=== PATIENT | male | born 1980 | race Caucasian/White ===

== ENCOUNTER 2019-03-28 23:50 | Inpatient (IN) | payer OTHER ==
[~2019-03-28] VITALS: Ht 180.3 cm; Wt 93.0 kg
--- NOTE | 2019-03-28 21:05 | NUR ---
This RN was told by Nancy MADISON from [facility] during report on patient that Dr. Kitchen had already been consulted and aware of the patient.
[~2019-03-28 23:50] MED LIST: CIPR500T94 PO; HYDR-2761 PO
--- NOTE | 2019-03-28 23:50 | NUR ---
The patient, MARY JO FLETCHER, 38 y/o, M admitted by LEXI MITCHELL MD, was given written information regarding hospital policies, unit procedures and contact persons. Patient was a direct admit from [facility]. RN received report from Nancy MADISON at [place] at 2105, patient arrived to room 414 by EMS at 2350 via gurney with at bedside. RN performed a head to toe assessment at that time, VSS, afebrile, pain rated a 4/10. Bed is in lowest locked position and call light is within reach. Valuables were checked and left in the room with patient. RN will continue to monitor patient closely.
[2019-03-29] VITALS (7 sets, daily range): BP systolic 105–128; BP diastolic 60–79
[2019-03-29] MEDS ORDERED: MORPHINE SULFATE 4 MG/ML VIAL. IV PRN (01:00)
[2019-03-29] MEDS: IV NORMAL SALINE 1000ML BAG 1,000 ML IV SCH ×3 (01:01→20:58)
--- NOTE | 2019-03-29 08:32 | PDOC2 ---
CONSULT Date of Consult Date of Consult DATE: 03/29/19 TIME: 08:29 Reason for Consult Reason for Consult: Abdominal pain Referring Physician Referring Physician: Ariel Identification/Chief Complaint Chief Complaint Abdominal pain above the pubic symphysis Source Source: Patient History of Present Illness Reason for Visit: 38-year-old male who states that he started feeling abdominal pain 2 days ago that time he had a normal bowel movement denies any blood in his stool pain became progressively worse which is why he came to the emergency department. He states he's had 4 episodes in the past similar to this none of which she's been hospitalized for. Denies ever having had a colonoscopy. Some nausea but no vomiting. Past Medical History Cardiovascular: No pertinent hx Pulmonary: No pertinent hx GI: No pertinent hx Heme/Onc: No pertinent hx Hepatobiliary: No pertinent hx Psych: No pertinent hx Rheumatologic: No pertinent hx Infectious disease: No pertinent hx ENT: No pertinent hx Renal/: No pertinent hx, Chronic renal failure Endocrine: No pertinent hx Dermatology: No pertinent hx Past Surgical History Past Surgical History: No pertinent history Family History Family History: No Significant Social History No ALCOHOL: rare Drugs: None Lives: with Family Current Medications Current Medications Current Medications Morphine Sulfate (Morphine Sulfate) 4 mg PRN Q4HRS PRN IV SEVERE PAIN 7-10; Start 03/29/19 at 01:00 Sodium Chloride 1,000 ml @ 100 mls/hr Q10H IV Last administered on 03/29/19at 01:01; Start 03/29/19 at 01:00 Active Scripts Active Hydrocodone-Apap 5-325 (Hydrocodone Bit/Acetaminophen) 1 Each Tablet 1-2 Tab PO Q4-6HRS Cipro (Ciprofloxacin Hcl) 500 Mg Tablet 500 Mg PO BID Allergies Allergies: Coded Allergies: No Known Drug Allergies (Unverified , 01/24/15) ROS Gastrointestinal: Yes Nausea, Yes Abdominal Pain Physical Exam General: Alert, Oriented X3, Cooperative, mild distress HEENT: Atraumatic, PERRLA, EOMI Lungs: Clear to auscultation, Normal air movement Heart: Regular rate, No murmurs Abdomen: Normal bowel sounds, Soft, Other (tender to palpation low in the mid line just above the pubic symphysis no peritoneal signs abdomen is soft) Extremities: No edema Skin: No significant lesion Neuro: Normal speech Psych/Mental Status: Mental status NL Vitals VITALS Vital Signs Date Time Temp Pulse Resp B/P (MAP) Pulse Ox O2 Delivery O2 Flow Rate FiO2 03/29/19 07:00 98.6 73 18 107/64 (78) 99 Room Air 98.[address] scan from [place] was reviewed which showed sigmoid diverticulitis with small bubble of free air likely secondary for microperforation no fluid no abscess Assessment/Plan Assessment/Plan 38-year-old male with diverticulitis hemodynamically stable mildly elevated white count Agree with treatment with IV antibiotics IV hydration and bowel rest Would recommend GI consult in addition patient will need colonoscopy after acute episode is resolved FIDEL CUNNINGHAM MD Mar 29, 2019 08:32
[2019-03-29] MEDS ORDERED: ONDANSETRON PF 4 MG/2 ML VIAL. IV PRN (10:00)
[2019-03-29] MEDS ORDERED: PIPERACILLIN/TAZOBACTAM 4.5 GM in IV NORMAL SALINE 100ML 100 ML IV SCH (10:00)
--- NOTE | 2019-03-29 10:03 | HP ---
ADMIT DATE: 03/28/2019 HISTORY OF PRESENT ILLNESS: The patient is a 38-year-old male patient who presented to the Emergency Room of [facility] with abdominal pain, dysuria that started the day before admission, also had fever, temperature up to 107. He tried [id number] without improvement. The pain radiates to both flank areas. There is no blood in the urine. No increased frequency. He has had 3 previous episodes of diverticulitis and according to him, he was seen, the last time at [facility] at the time he was placed on antibiotic. He denied any urethral discharge or testicular pain. He was evaluated in the Emergency Room and had a CT scan of the abdomen and pelvis with IV contrast as well as lab work. His white cell count was high at 15,000. His chemistry was unremarkable. Urinalysis was also unremarkable. CT scan of the abdomen and pelvis showed that the patient has acute sigmoid diverticulitis. There are also a couple of small bubbles of gas along the inferior margin of the inflamed colon which represents early microperforation, but no evidence of an abscess; therefore, the patient was transferred to [facility] to continue with IV fluid and IV antibiotic and pain management. PAST MEDICAL HISTORY: Significant for diverticulitis. PAST SURGICAL HISTORY: Significant for vasectomy. ALLERGIES: He has no known drug allergies. MEDICATIONS: He is currently on no medication. FAMILY HISTORY: Unremarkable, has 1 older sister and both parents are healthy. SOCIAL HISTORY: He is , has 2 daughters and 1 son. He does smoke a little less than a pack, does not drink alcohol or use any recreational drugs. He is in the [employer]. PHYSICAL EXAMINATION: GENERAL: On examining him, on arrival to the [place], he looked well and was clearly in no apparent respiratory distress. No pallor, jaundice, cyanosis or thyromegaly. No jugular venous distention. No limb edema. VITAL SIGNS: His heart rate was 78, blood pressure 118/67, temperature was 99, respiratory rate was 18 and oxygen saturation was 98%. HEAD, EYES, EARS, NOSE AND THROAT: Showed normocephalic, atraumatic. NECK: Supple. HEART: Showed normal first and second heart sounds with no gallop, rub or murmur. CHEST: Clear to auscultation. No crepitation or rhonchi. ABDOMEN: Distended, soft with mild lower abdominal tenderness without any rebound. No guarding or rigidity. No organomegaly. All hernial orifices intact. Bowel sounds normal. NEUROLOGIC: He is awake, alert, responding appropriately. All cranial nerves intact. EXTREMITIES: He moves extremities without difficulty. He ambulates without assistance or assistive devices. LABORATORY DATA: Showed white cell count of 15,100, hemoglobin 16, hematocrit 46, MCV 90 and platelet count of 294,000 with normal manual differential. His chemistry showed a serum sodium 136, potassium 3.5, chloride 100, bicarbonate 28, anion gap of 8, BUN 7, creatinine 1.2, estimated GFR was 68 mL per minute. His glucose was 95, calcium was 9. Total bilirubin, AST, ALT, alkaline phosphatase were normal. Total protein was 7.7, albumin was 3.7. Serum lipase 146. His urinalysis showed the urine was yellow, clear with a pH of 7, specific gravity of 1.010. The urine was negative for protein, glucose, ketones, blood, nitrite, leukocyte esterase. There are no rbc's, no wbc's, and no bacteria. SUMMARY: This is a 38-year-old male patient who came with acute sigmoid diverticulitis with microperforation. We will continue with IV fluid, continue with antibiotic. We will consult the surgical team and decide on further management accordingly. LEXI MITCHELL MD DR: GRACE/yoly JOB#: [id number] / [id number]
[2019-03-29] MEDS: PIPERACILLIN/TAZOBACTAM 3.375 GM in IV NORMAL SALINE 50ML 50 ML IV SCH ×3 (10:14→23:49)
--- NOTE | 2019-03-29 12:26 | PDOC2 ---
GI CONSULT Reason For Consult: Diverticulitis HPI: HPI: 38 y/o male with recurrent attacks of supraumbilical pain. 3-4 prior to this one w/o firm diagnosis. Has responded to antibiotics in the past. This time seen at [facility] and had CT showing diverticulitis with probably "microperf". Otherwise w/o GI issues. Denies HB, dyaphagia, PUD, GB, liver or pancreatic history. Smokes. No alcohol. Occasional NSAID use. No D, C, overt bleeding. Wt/appetite OK. No N, V. No GIFH. No prior endoscopy. PMH: PMH: No PMH. Prior vasectomy constitutes only operation. FH: Family History: CAD (grandmother) Social History: Smoke: No ALCOHOL: rare Drugs: None ROS: GEN: Denies fevers, chills, sweats HEENT: Denies blurred vision, sore throat CV: Denies chest pain RESP: Denies shortness of air, cough GI: Per HPI : Denies hematuria, dysuria ENDO: Denies weight changes NEURO: Denies confusion, dizziness MSK: Denies weakness, joint pain/swelling SKIN: Denies jaundice, pruritus Vitals: Vitals: Vital Signs Date Time Temp Pulse Resp B/P (MAP) Pulse Ox O2 Delivery O2 Flow Rate FiO2 03/29/19 10:48 97.8 77 18 125/75 (92) 98 Room Air 97.8 Labs: Labs: Reviewed. Allergies: Coded Allergies: No Known Drug Allergies (Unverified , 01/24/15) Medications: Current Medications Medications (Trade) Dose Ordered Sig/Kina Route PRN Reason Start Time Stop Time Status Last Admin Dose Admin Sodium Chloride 1,000 ml @ 100 mls/hr Q10H IV 03/29/19 01:00 03/29/19 10:18 Piperacillin Sod/ Tazobactam Sod 3.375 gm/Sodium Chloride 50 ml @ 100 mls/hr Q6HRS IV 03/29/19 10:30 03/29/19 10:18 Imaging: Imaging: Reports from [facility] reviewed. PE: GEN: NAD HEENT: Atraumatic, PERRLA LUNGS: CTAB HEART: RRR, no murmurs ABD: NABS, S/ND, no masses, tender suprapubic toward left. EXTREMITY: No edema SKIN: No rashes, no jaundice NEURO/PSYCH: A & O �3 A/P: A/P: IMP: Diverticulitis; suspect cause of other "attacks". REC: Continue antibiotics. Could probably have clears. As improves, po antibiotics. Given higher risk of polyps, etc with diverticular disease, would merit colonoscopy once current issues resolve. Given recurrent issues, could certainly consider surgery for diverticular problems. Thank you for allowing me to assist in the care of this patient. Please call if questions. EVA RODRIGUEZ MD Mar 29, 2019 12:26
--- NOTE | 2019-03-29 22:31 | PN ---
DATE: 03/29/2019 SUBJECTIVE: The patient was seen yesterday at [facility] Emergency Room, was diagnosed with acute sigmoid diverticulitis with microperforation, who was admitted to [facility] to continue with IV antibiotic, pain management and to consult the surgical team. On questioning him this morning, he stated his pain is much less today. Denied any chills, rigors or fever. PHYSICAL EXAMINATION: GENERAL: When I examined him, he looked well and was clearly in no apparent respiratory distress. No pallor, jaundice, cyanosis or thyromegaly. No jugular venous distension. No lower limb edema. VITAL SIGNS: Her heart rate was 73, blood pressure 107/64, temperature was 98.6, respiratory rate was 18 and oxygen saturation was 99%. HEAD, EYES, EARS, NOSE AND THROAT: Showed normocephalic, atraumatic. NECK: Supple. HEART: Showed normal first and second heart sounds. No gallop or murmur. CHEST: Clear to auscultation. No crepitation, rhonchi. ABDOMEN: Soft, nontender. NEUROLOGIC: He was awake, alert, responding appropriately. All cranial nerves are intact. He moves extremities without difficulty. LABORATORY DATA: No lab works done yesterday, his white cell count was 15,000. ASSESSMENT: Acute sigmoid diverticulitis with microperforation. PLAN: To continue with IV Zosyn, IV fluid, pain management, antiemetic and bowel rest. We will consult the healthcare network pricing consultant as he may require eventually a colonoscopy. LEXI MITCHELL MD DR: GRACE/yoly JOB#: [id number] / [id number]
[2019-03-30 03:02] VITALS: BP 109/66
[2019-03-30 04:54] LABS: BASO # 0.1 x10^3/uL (0.0-0.2); BASO % 1 % (0-3); EOS # 0.5 x10^3/uL (0.0-0.7); EOS % 6 % (0-3); HEMATOCRIT 38.9 % (39.0-53.0); HEMOGLOBIN 13.7 g/dL (13.0-17.5); LYMPH # 2.3 x10^3/uL (1.0-4.8); LYMPH % 29 % (24-48); MEAN CORPUSCULAR HEMOGLOBIN 32 pg (25-35); MEAN CORPUSCULAR HGB CONC 35 g/dL (31-37); MEAN CORPUSCULAR VOLUME 89 fL (79-100); MONO # 0.5 x10^3/uL (0.0-1.1); MONO % 6 % (0-9); NEUT # 4.8 x10^3/uL (1.8-7.7); NEUT % 59 % (31-73); PLATELET COUNT 238 x10^3/uL (140-400); RED BLOOD COUNT 4.37 x10^6/uL (4.30-5.70); RED CELL DISTRIBUTION WIDTH 12.8 % (11.5-14.5)
[2019-03-30 05:19] LABS: ALBUMIN 2.9 g/dL (3.4-5.0); ALBUMIN/GLOBULIN RATIO 0.8 (1.0-1.7); CALCIUM 8.7 mg/dL (8.5-10.1); CREATININE 1.1 mg/dL (0.7-1.3); GFR 74.9; TOTAL BILIRUBIN 1.2 mg/dL (0.2-1.0); TOTAL PROTEIN 6.6 g/dL (6.4-8.2)
[2019-03-30] MEDS: IV NORMAL SALINE 1000ML BAG 1,000 ML IV SCH ×2 (05:31→17:00)
[2019-03-30] MEDS: PIPERACILLIN/TAZOBACTAM 3.375 GM in IV NORMAL SALINE 50ML 50 ML IV SCH ×3 (05:31→17:55)
[2019-03-30 07:00] VITALS: BP 106/59
--- NOTE | 2019-03-30 09:35 | PDOC ---
COLETTE NATH CHAIRMAN & CEO 03/30/19 0935: SURGICAL PROGRESS NOTE Subjective pain is in low back no abdominal pain no n/v tolerating clears Vital Signs Vital Signs Date Time Temp Pulse Resp B/P (MAP) Pulse Ox O2 Delivery O2 Flow Rate FiO2 03/30/19 07:30 Room Air 03/30/19 07:00 98.2 62 16 106/59 (75) 99 98.2 I&O Intake and Output 03/30/19 06:59 # Voids 3 General: Alert, Oriented X3, Cooperative, No acute distress Abdomen: Soft, No tenderness Labs Laboratory Tests Test 03/30/19 04:10 White Blood Count 8.0 x10^3/uL (4.0-11.0) Red Blood Count 4.37 x10^6/uL (4.30-5.70) Hemoglobin 13.7 g/dL (13.0-17.5) Hematocrit 38.9 % (39.0-53.0) Mean Corpuscular Volume 89 fL (79-100) Mean Corpuscular Hemoglobin 32 pg (25-35) Mean Corpuscular Hemoglobin Concent 35 g/dL (31-37) Red Cell Distribution Width 12.8 % (11.5-14.5) Platelet Count 238 x10^3/uL (140-400) Neutrophils (%) (Auto) 59 % (31-73) Lymphocytes (%) (Auto) 29 % (24-48) Monocytes (%) (Auto) 6 % (0-9) Eosinophils (%) (Auto) 6 % (0-3) Basophils (%) (Auto) 1 % (0-3) Neutrophils # (Auto) 4.8 x10^3/uL (1.8-7.7) Lymphocytes # (Auto) 2.3 x10^3/uL (1.0-4.8) Monocytes # (Auto) 0.5 x10^3/uL (0.0-1.1) Eosinophils # (Auto) 0.5 x10^3/uL (0.0-0.7) Basophils # (Auto) 0.1 x10^3/uL (0.0-0.2) Sodium Level 144 mmol/L (136-145) Potassium Level 4.0 mmol/L (3.5-5.1) Chloride Level 109 mmol/L (98-107) Carbon Dioxide Level 27 mmol/L (21-32) Anion Gap 8 (6-14) Blood Urea Nitrogen 10 mg/dL (8-26) Creatinine 1.1 mg/dL (0.7-1.3) Estimated GFR (Cockcroft-Gault) 74.9 BUN/Creatinine Ratio 9 (6-20) Glucose Level 75 mg/dL (70-99) Calcium Level 8.7 mg/dL (8.5-10.1) Total Bilirubin 1.2 mg/dL (0.2-1.0) Aspartate Amino Transf (AST/SGOT) 12 U/L (15-37) Alanine Aminotransferase (ALT/SGPT) 14 U/L (16-63) Alkaline Phosphatase 61 U/L (46-116) Total Protein 6.6 g/dL (6.4-8.2) Albumin 2.9 g/dL (3.4-5.0) Albumin/Globulin Ratio 0.8 (1.0-1.7) Laboratory Tests Test 03/30/19 04:10 White Blood Count 8.0 x10^3/uL (4.0-11.0) Red Blood Count 4.37 x10^6/uL (4.30-5.70) Hemoglobin 13.7 g/dL (13.0-17.5) Hematocrit 38.9 % (39.0-53.0) Mean Corpuscular Volume 89 fL (79-100) Mean Corpuscular Hemoglobin 32 pg (25-35) Mean Corpuscular Hemoglobin Concent 35 g/dL (31-37) Red Cell Distribution Width 12.8 % (11.5-14.5) Platelet Count 238 x10^3/uL (140-400) Neutrophils (%) (Auto) 59 % (31-73) Lymphocytes (%) (Auto) 29 % (24-48) Monocytes (%) (Auto) 6 % (0-9) Eosinophils (%) (Auto) 6 % (0-3) Basophils (%) (Auto) 1 % (0-3) Neutrophils # (Auto) 4.8 x10^3/uL (1.8-7.7) Lymphocytes # (Auto) 2.3 x10^3/uL (1.0-4.8) Monocytes # (Auto) 0.5 x10^3/uL (0.0-1.1) Eosinophils # (Auto) 0.5 x10^3/uL (0.0-0.7) Basophils # (Auto) 0.1 x10^3/uL (0.0-0.2) Sodium Level 144 mmol/L (136-145) Potassium Level 4.0 mmol/L (3.5-5.1) Chloride Level 109 mmol/L (98-107) Carbon Dioxide Level 27 mmol/L (21-32) Anion Gap 8 (6-14) Blood Urea Nitrogen 10 mg/dL (8-26) Creatinine 1.1 mg/dL (0.7-1.3) Estimated GFR (Cockcroft-Gault) 74.9 BUN/Creatinine Ratio 9 (6-20) Glucose Level 75 mg/dL (70-99) Calcium Level 8.7 mg/dL (8.5-10.1) Total Bilirubin 1.2 mg/dL (0.2-1.0) Aspartate Amino Transf (AST/SGOT) 12 U/L (15-37) Alanine Aminotransferase (ALT/SGPT) 14 U/L (16-63) Alkaline Phosphatase 61 U/L (46-116) Total Protein 6.6 g/dL (6.4-8.2) Albumin 2.9 g/dL (3.4-5.0) Albumin/Globulin Ratio 0.8 (1.0-1.7) Problem List Problems Medical Problems: (1) Perforation of sigmoid colon due to diverticulitis Status: Acute Assessment/Plan ok from surgical pov to advance diet and work toward oral abx, dc, gi fu FIDEL CUNNINGHAM MD 03/30/19 1030: SURGICAL PROGRESS NOTE Assessment/Plan Patient seen and examined, little to no abdominal pain. Abd soft, NT Agree with Dick's assessment and plan COLETTE NATH APRN Mar 30, 2019 09:35 FIDEL CUNNINGHAM MD Mar 30, 2019 10:30
--- NOTE | 2019-03-30 09:42 | PN ---
DATE: 03/30/2019 SUBJECTIVE: The patient is resting flat, comfortably, in no apparent distress. On questioning him, he denied any abdominal pain. Denied any nausea or vomiting. He is only hungry. Apparently, he was seen by Dr. Kitchen and he is apparently started on a clear liquid. PHYSICAL EXAMINATION: GENERAL: When I examined him, he looked pale. No jaundice, cyanosis or thyromegaly. No jugular venous distention. No limb edema. VITAL SIGNS: His heart rate was 62, blood pressure was 106/59, temperature was 98.2, respiratory rate was 16, and oxygen saturation was 99%. HEAD, EYES, EARS, NOSE AND THROAT: Showed normocephalic, atraumatic. NECK: Supple. HEART: Showed normal first and second heart sounds with no gallop or murmur. CHEST: Clear to auscultation. No crepitation or rhonchi. ABDOMEN: Scaphoid, soft, nontender. NEUROLOGIC: He was awake, alert, responding appropriately. All cranial nerves intact. He moves extremities without difficulty. His intake and output are incompletely recorded. LABORATORY DATA: His lab work this morning showed a serum sodium 144, potassium 4, chloride 109, bicarbonate 27, anion gap of 8, BUN 10, creatinine 1.1, estimated GFR was 74 mL per minute, his glucose 75, calcium was 8.7. Total bilirubin, AST, ALT, alkaline phosphatase were normal. Total protein was 6.6, albumin 2.9. His white cell count was 8000, hemoglobin 14, hematocrit 39, MCV 89 and platelet count 238,000. ASSESSMENT: Acute sigmoid diverticulitis with microperforation. PLAN: To continue with IV Zosyn, continue with IV fluid, continue with pain management. Start clear liquid diet. LEXI MITCHELL MD DR: GRACE/yoly JOB#: [id number] / [id number]
--- NOTE | 2019-03-30 09:58 | PDOC ---
Subjective: Subjective: Feels better - no abd pain, has stooled. Would like to discharge soon. Objective: Objective: Per nurse - trying clears, denies pain, wants to leave. Vital Signs: Vital Signs Date Time Temp Pulse Resp B/P (MAP) Pulse Ox O2 Delivery O2 Flow Rate FiO2 03/30/19 07:30 Room Air 03/30/19 07:00 98.2 62 16 106/59 (75) 99 98.2 Labs: Laboratory Tests Test 03/30/19 04:10 White Blood Count 8.0 x10^3/uL Red Blood Count 4.37 x10^6/uL Hemoglobin 13.7 g/dL Hematocrit 38.9 % Mean Corpuscular Volume 89 fL Mean Corpuscular Hemoglobin 32 pg Mean Corpuscular Hemoglobin Concent 35 g/dL Red Cell Distribution Width 12.8 % Platelet Count 238 x10^3/uL Neutrophils (%) (Auto) 59 % Lymphocytes (%) (Auto) 29 % Monocytes (%) (Auto) 6 % Eosinophils (%) (Auto) 6 % Basophils (%) (Auto) 1 % Neutrophils # (Auto) 4.8 x10^3/uL Lymphocytes # (Auto) 2.3 x10^3/uL Monocytes # (Auto) 0.5 x10^3/uL Eosinophils # (Auto) 0.5 x10^3/uL Basophils # (Auto) 0.1 x10^3/uL Sodium Level 144 mmol/L Potassium Level 4.0 mmol/L Chloride Level 109 mmol/L Carbon Dioxide Level 27 mmol/L Anion Gap 8 Blood Urea Nitrogen 10 mg/dL Creatinine 1.1 mg/dL Estimated GFR (Cockcroft-Gault) 74.9 BUN/Creatinine Ratio 9 Glucose Level 75 mg/dL Calcium Level 8.7 mg/dL Total Bilirubin 1.2 mg/dL Aspartate Amino Transf (AST/SGOT) 12 U/L Alanine Aminotransferase (ALT/SGPT) 14 U/L Alkaline Phosphatase 61 U/L Total Protein 6.6 g/dL Albumin 2.9 g/dL Albumin/Globulin Ratio 0.8 PE: GEN: NAD - walking around room LUNGS: room air HEART: RRR ABD: soft, non-tender NEURO/PSYCH: A & O �3 A/P: Diverticulitis - suspect recurrent -- Improved, tolerating clears. Could advance diet some ?and consider DC on PO atbx. Outpt colonoscopy in 6-8 weeks - our office will call to arrange. MARQUIS WEINER Mar 30, 2019 09:57
[2019-03-30 11:00] VITALS: BP 121/82
--- NOTE | 2019-03-30 13:00 | NUR ---
SS following for discharge planning. SS reviewed pt chart. Pt is from home with spouse and is currently on room air. No discharge needs noted at this time. SS will continue to follow for discharge planning.
[2019-03-30 15:00] VITALS: BP 111/66
[2019-03-30 19:00] VITALS: BP 112/68
[2019-03-30] MEDS: CIPROFLOXACIN HCL 250 MG TABLET. PO SCH (20:57)
[2019-03-30] MEDS: metroNIDAZOLE 500 MG TABLET PO SCH (21:56)
[2019-03-30 22:45] VITALS: BP 109/59
[2019-03-31] MEDS: IV NORMAL SALINE 1000ML BAG 1,000 ML IV SCH (03:00)
[2019-03-31] MEDS: metroNIDAZOLE 500 MG TABLET PO SCH (06:07)
[2019-03-31 07:15] VITALS: BP 114/69
--- NOTE | 2019-03-31 09:00 | PDOC ---
SURGICAL PROGRESS NOTE Subjective tolerating diet no n/v no pain Vital Signs Vital Signs Date Time Temp Pulse Resp B/P (MAP) Pulse Ox O2 Delivery O2 Flow Rate FiO2 03/31/19 07:15 97.8 59 18 114/69 (84) 99 Room Air 97.8 I&O Intake and Output 03/31/19 06:59 Intake Total 970 ml Balance 970 ml Intake Oral 920 ml IV Total 50 ml # Voids 5 # Bowel Movements 1 General: Alert, Oriented X3, Cooperative, No acute distress Abdomen: Soft, No tenderness Labs Laboratory Tests Test 03/30/19 04:10 White Blood Count 8.0 x10^3/uL (4.0-11.0) Red Blood Count 4.37 x10^6/uL (4.30-5.70) Hemoglobin 13.7 g/dL (13.0-17.5) Hematocrit 38.9 % (39.0-53.0) Mean Corpuscular Volume 89 fL (79-100) Mean Corpuscular Hemoglobin 32 pg (25-35) Mean Corpuscular Hemoglobin Concent 35 g/dL (31-37) Red Cell Distribution Width 12.8 % (11.5-14.5) Platelet Count 238 x10^3/uL (140-400) Neutrophils (%) (Auto) 59 % (31-73) Lymphocytes (%) (Auto) 29 % (24-48) Monocytes (%) (Auto) 6 % (0-9) Eosinophils (%) (Auto) 6 % (0-3) Basophils (%) (Auto) 1 % (0-3) Neutrophils # (Auto) 4.8 x10^3/uL (1.8-7.7) Lymphocytes # (Auto) 2.3 x10^3/uL (1.0-4.8) Monocytes # (Auto) 0.5 x10^3/uL (0.0-1.1) Eosinophils # (Auto) 0.5 x10^3/uL (0.0-0.7) Basophils # (Auto) 0.1 x10^3/uL (0.0-0.2) Sodium Level 144 mmol/L (136-145) Potassium Level 4.0 mmol/L (3.5-5.1) Chloride Level 109 mmol/L (98-107) Carbon Dioxide Level 27 mmol/L (21-32) Anion Gap 8 (6-14) Blood Urea Nitrogen 10 mg/dL (8-26) Creatinine 1.1 mg/dL (0.7-1.3) Estimated GFR (Cockcroft-Gault) 74.9 BUN/Creatinine Ratio 9 (6-20) Glucose Level 75 mg/dL (70-99) Calcium Level 8.7 mg/dL (8.5-10.1) Total Bilirubin 1.2 mg/dL (0.2-1.0) Aspartate Amino Transf (AST/SGOT) 12 U/L (15-37) Alanine Aminotransferase (ALT/SGPT) 14 U/L (16-63) Alkaline Phosphatase 61 U/L (46-116) Total Protein 6.6 g/dL (6.4-8.2) Albumin 2.9 g/dL (3.4-5.0) Albumin/Globulin Ratio 0.8 (1.0-1.7) Problem List Problems Medical Problems: (1) Perforation of sigmoid colon due to diverticulitis Status: Acute Assessment/Plan stable for dc from surgical pov abx, gi FU COLETTE NATH CONTROL SYSTEMS ENGINEER Mar 31, 2019 09:00
[2019-03-31] MEDS: CIPROFLOXACIN HCL 250 MG TABLET. PO SCH (09:12)
--- NOTE | 2019-03-31 09:20 | PDOC ---
Subjective: Subjective: Not a breakfast person, but ate veggies, chicken, and mashed potatoes last night. No abd pain, would like to discharge. Objective: Vital Signs: Vital Signs Date Time Temp Pulse Resp B/P (MAP) Pulse Ox O2 Delivery O2 Flow Rate FiO2 03/31/19 08:00 Room Air 03/31/19 07:15 97.8 59 18 114/69 (84) 99 97.8 PE: GEN: NAD LUNGS: CTAB HEART: RRR ABD: NABS, S/ND/NT NEURO/PSYCH: A & O �3 A/P: Diverticulitis -- Improved. DC per primary on PO atbx, follow-up for colonoscopy w/ Dr. Rojas. MARQUIS WEINER Mar 31, 2019 09:20
[2019-03-31] MEDS ORDERED: METR-34 PO (09:44)
--- NOTE | 2019-03-31 09:52 | DS ---
DATE OF DISCHARGE: 03/31/2019 HOSPITAL COURSE: The patient is resting, slightly propped up in bed, in no apparent distress. On questioning him, he denied any abdominal pain. Denied any nausea or vomiting. His diet was advanced to regular diet. He is eating and drinking without difficulty. He was evaluated by the surgical team as well as the wardrobe supervisor and as he remained stable, afebrile, tolerating his diet, a decision was made to discharge him home to continue on oral antibiotic. PHYSICAL EXAMINATION: GENERAL: When I examined him this morning, he looked well and was clearly in no apparent respiratory distress. No pallor, jaundice, cyanosis, or thyromegaly. No jugular venous distension. No lower limb edema. VITAL SIGNS: His heart rate was 59, blood pressure was 114/69, temperature was 97.8, respiratory rate was 18, and oxygen saturation was 99%. HEAD, EYES, EARS, NOSE, AND THROAT: Showed normocephalic, atraumatic. NECK: Supple. HEART: Showed normal first and second heart sounds. No gallop or murmur. CHEST: Clear to auscultation. No crepitation or rhonchi. ABDOMEN: Scaphoid, soft, nontender. No guarding or rigidity. No organomegaly. All hernial orifice intact. Bowel sounds normal. NEUROLOGIC: He is awake, alert, responding appropriately. All cranial nerves intact. EXTREMITIES: He moves extremities without difficulty, ambulates without assistance or assistive devices. LABORATORY DATA: Showed a white cell count of 8000, hemoglobin 13.7, hematocrit 39, MCV 89, and platelet count of 238,000. Serum sodium 144, potassium 4, chloride 109, bicarbonate 27, anion gap of 8. BUN 10, creatinine 1.1, estimated GFR was 75 mL per minute. His glucose was 75. Calcium was 8.7. Total bilirubin slightly elevated. AST, ALT, alkaline phosphatase were normal. Total protein is 6.6. Albumin 2.9. DISCHARGE MEDICATIONS: He will be discharged home to continue on ciprofloxacin 500 mg twice a day and Flagyl 500 mg 2 times a day for 8 more days. FINAL DISCHARGE DIAGNOSIS: Acute sigmoid diverticulitis with microperforation, resolving. The patient will follow with Gastroenterology team for colonoscopy. LEXI MITCHELL MD DR: GRACE/yoly JOB#: [id number] / [id number]
--- NOTE | 2019-03-31 10:15 | NUR ---
Discharge orders placed. Discharge instructions/medications discussed with pt/pt . Rx Cipro 500mg 1 BID #16 and Flagyl 500mg 1 TID #24 given to pt. Discussed/wrote down due times for medications. Pt verbalized understanding. Explained to pt increased pain/fever to go to nearest ED. Pt voiced understanding. Explained pt will need to f/u with Dr. Rojas for colonoscopy. Pt explained Neida with Dr. Rojas explained their office will reach out to pt. Voiced understanding. Dr. Rojas number given to pt. IV removed without complications. Walked pt out to private vehicle accompanied by pt family without complications. Pt secured in vehicle.
== END 2019-03-31 10:15 | disposition home or self-care (01) | DRG 392 ==
LOC: 4 NORTH 23:50
PROVIDERS: ADMIT Internal Medicine; ATTEND Internal Medicine
DX: K57.20 Diverticulitis of large intestine with perforation and abscess without bleeding (principal); F17.210 Nicotine dependence, cigarettes, uncomplicated; Z98.52 Vasectomy status; Z82.49 Family history of ischemic heart disease and other diseases of the circulatory system
CPT/HCPCS: 36415; 80053; 85025; J2543; J7030; G0378

== ENCOUNTER → 2019-08-17 | Day surgery (SDC) | payer OTHER ==
[~2019-08-17] MED LIST changes: +IV RINGERS,LACTATED 1000ML 1,000 ML IV ONE; +LIDOCAINE 2% PF 5 ML VIAL. ONE; +METR-34 PO; +PROPOFOL 40 ML IV ONE
--- NOTE | 2019-08-17 13:15 | PDOC1 ---
History and Physical Date of Admission Date of Admission DATE: 08/17/19 TIME: 13:10 Source Source: Chart review, Patient History of Present Illness History of Present Illness 38 y/o male with recurrent diverticulitis. Last in March 2019. Colonoscopy recommended and presents for same. Currently w/o complaints. No other GI complaints or history. Past Medical History Cardiovascular: No pertinent hx Pulmonary: No pertinent hx GI: No pertinent hx Heme/Onc: No pertinent hx Hepatobiliary: No pertinent hx Psych: No pertinent hx Rheumatologic: No pertinent hx Infectious disease: No pertinent hx Renal/: No pertinent hx, Chronic renal failure Endocrine: No pertinent hx Dermatology: No pertinent hx Past Surgical History Past Surgical History: Other (vasectomy) Family History Family History: Coronary Artery Disease (grandmother) Social History Smoke: No ALCOHOL: rare Drugs: None Current Medications Current Medications Current Medications Ringer's Solution 1,000 ml @ 75 mls/hr 1X ONCE IV ; Start 08/17/19 at 13:15; Stop 08/18/19 at 02:34 Active Scripts Active Allergies Allergies: Coded Allergies: No Known Drug Allergies (Unverified , 01/24/15) ROS Review of System Otherwise negative. Physical Exam General: Alert, Oriented X3, Cooperative, No acute distress Lungs: Clear to auscultation Heart: S1S2, no gallops, no murmurs Abdomen: Normal bowel sounds, Soft, No tenderness, No hepatosplenomegaly, No masses Rectal Exam: deferred (to time of procedure) Extremities: No cyanosis, No edema Skin: No significant lesion Neuro: Normal speech, Strength at 5/5 X4 ext, Normal tone, Sensation intact, Cranial nerves 3-12 NL, Reflexes 2+ Psych/Mental Status: Mental status NL, Mood NL Vitals Vitals See nursing record. VTE Prophylaxis Ordered VTE Prophylaxis Devices: No VTE Pharmacological Prophylaxi: No Assessment/Plan Assessment/Plan IMP: Diverticulosis with h/o diverticulitis. PLAN: Colonoscopy EVA RODRIGUEZ MD Aug 17, 2019 13:15
--- NOTE | 2019-08-17 14:20 | PDOC4 ---
PROCEDURE Procedure Colonoscopy with biopseis Indication: diverticulosis Meds: per anesthesa Findings: CHANDRA: Normal --'Scope advanced t cecum. Prep good. Mucosa normal. multiple diverticula, sigmoid. 4-5mm polyp, sigmoid, biopsied off. Exam otherwise normal including retroflex. Tomeka. well. IMP: small polyp Diverticulosis REC: f/u path. See me in 2 weeks. Continue current meds, diet. EVA RODRIGUEZ MD Aug 17, 2019 14:20
[2019-08-17 14:38] VITALS: BP 116/69
--- NOTE | 2019-08-19 18:52 | PATHOLOGY ---
[facility] Accession Number: [id number] . 01 Material submitted: . colon - SIGMOID POLYP BIOPSY. Modifiers: sigmoid . 01 Clinical history: . F/U diverticulosis. . 02 Diagnosis: Colon biopsy, sigmoid colon polyp: - Tubular adenoma. ([facility] 08/19/2019) [facility] 08/19/2019 1026 Local . 02 Comment: There is no high-grade dysplasia or evidence of malignancy. ([facility] 08/19/2019) . 02 Electronically signed: . Glenn Alvarez MD, Pathologist NPI- [id number] . 01 Gross description: . Received in formalin labeled "Leo Khan, sigmoid BX" is a 0.4 x 0.4 x 0.1 cm fragment of tapia-brown soft tissue. The specimen is submitted entirely in A1. ([facility]; 08/18/2019) [facility] 08/18/2019 1716 Local . 02 Pathologist provided ICD-10: D12.5 . 02 CPT . 323136 Specimen Comment: A courtesy copy of this report has been sent to [phone] Specimen Comment: Report sent to Specimen Comment: A duplicate report has been generated due to demographic updates. Performed at: 01 [facility] [address], [place], [place] [id number] MD Kit Ureña MD Phone: [phone] Performed at: 02 [facility] [address], [place] [id number] MD Glenn Alvarez MD Phone: [phone]
== END | disposition home or self-care (01) ==
LOC: SURG 12:43
PROVIDERS: ATTEND Internal Medicine Gastroenterology
DX: K59.00 Constipation, unspecified (principal); D12.5 Benign neoplasm of sigmoid colon; K57.30 Diverticulosis of large intestine without perforation or abscess without bleeding; Z72.89 Other problems related to lifestyle
CPT/HCPCS: 45380; 88305; J2001; J2704

== ENCOUNTER → 2020-10-18 | Outpatient (CLI) | payer OTHER ==
[2019-08-17 14:38] VITALS: BP 116/69
[~2020-10-18] MED LIST changes: +CYAN250T3 PO; +FOLI0.4T5 PO; -IV RINGERS,LACTATED 1000ML 1,000 ML IV ONE; +LEVO88TA70 PO; -LIDOCAINE 2% PF 5 ML VIAL. ONE; -PROPOFOL 40 ML IV ONE; +Vitamin D
--- NOTE | 2020-10-18 11:01 | PDOC1 ---
INITIAL PAIN CONSULT DATE OF SERVICE: DOS: DATE: 10/18/20 TIME: 10:55 CHIEF COMPLAINT: Chief Complaint: Low back bilateral lower extremity pain HISTORY OF PRESENT ILLNESS: 40-year-old male presents history of pain in the low back bilateral lower extremities also in the mid upper back for many years worse over the past year or so but going on for about 20 years patient was active is recently retired from that and has pain in the low back bilateral lower extremities posterior gluteus posterior thighs posterior calves anterior thighs anteromedial thighs medial lower legs as well as the feet bilaterally. 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 Patient has had physical therapy in the past as well as chiropractic treatment and exercises currently doing as well all with good decrease in pain but only temporary patient is tried Motrin Advil Flexeril Demerol Percocet and tramadol all of which help to some extent but only limited as well. Patient does yoga also which he feels is helpful and is currently doing that also patient did have an MRI scan of the lumbar spine dated September 15, 2020 showing minimal degenerative changes ill 3 4 with minimal disc bulge L4-5 with minimal disc bulge at L5-S1 with minimal disc bulge without foraminal compromise at any of these levels. Patient scribes pain is back as shooting sharp constant aching radiating into the lower extremities bilaterally right essentially equal to left but slightly more on the right with ambulation patient reports the pain in the back is aching and dull cramping at times intermittent intensity but always present. Patient rates his disability rating 0-10 10 being the worst is a 4 with family home with possibilities recreation as well as behavior 5 with social activity occupational activities to with self-care life support activities. PAST MEDICAL HISTORY: PMH: Diverticulitis, arthritis, history of cigarette smoking, hypothyroidism PREVIOUS SURGERIES: Past Surgical Hx: Vasectomy CURRENT MEDICATIONS: Current Meds: Active Scripts Medications Dose Route/Sig Max Daily Dose Days Date Category Synthroid (Levothyroxine Sodium) 88 Mcg Tablet 88 Mcg PO DAILYAC 10/18/20 Reported [Vitamin D] Unknown Dose WEEKLY 10/18/20 Reported Folic Acid 0.4 Mg Tablet Unknown Dose PO DAILY 10/18/20 Reported Vitamin B-12 (Cyanocobalamin (Vitamin B-12)) 250 Mcg Tablet Unknown Dose PO DAILY 10/18/20 Reported ALLERGIES; Allergies: Coded Allergies: No Known Drug Allergies (Unverified , 01/24/15) FAMILY HISTORY: Family Hx: Cancers SOCIAL HISTORY: Social Hx: Patient is nondrug alcohol recently quit smoking without use any illegal illicit recreational drugs is single has 2 children living at home lives locally in [facility] and is recently retired from [employer] duty. REVIEW OF SYSTEMS: ROS: Positive for those items mentioned in history of present illness, all systems are reviewed, otherwise negative ,and are complete full and well-documented on patient's chart. PHYSICAL EXAM: VS: Blood pressure is 140/88 pulse 69 respiration 16 temperature 98.5 F height is 71 inches weight is 212 pounds PE: PHYSICAL EXAMINATION: GENERAL: The patient is awake, alert, oriented, appropriate, very pleasant demeanor HEENT: Shows normocephalic, atraumatic. Extraocular movements are intact and symmetrical. Oral cavity: Mucous membranes moist and pink. Dentition is intact. NECK: Shows anterior throat supple without palpable lymphadenopathy noted. Swallow reflex symmetrical. CHEST: Shows normal on inspection. Breath sounds are clear bilaterally, no rales rhonchi wheezes auscultated. HEART: Shows S1, S2 clear. No murmurs auscultated. ABDOMEN: Soft, nontender, nondistended. No palpable organomegaly is noted. No rebound or guarding demonstrated. BACK: Shows spine grossly in the midline. Normal-appearing cervical lordotic curvature. There is slightly increased thoracic kyphosis, some minor flattening of the lumbar lordotic curvature. Lumbar paraspinous muscles show symmetrical on inspection, on palpation shows some moderate tenderness diffusely throughout the upper, middle and lower distribution of the paraspinous muscles bilaterally and also into the lower thoracic paraspinous musculature, firm and tender, but without specific trigger points, without radiation of pain. The patient has good rotational motion of the lumbar spine, both laterally as well as extension and flexion without significant difficulty. No tenderness over the spinous processes, sacrum or sacroiliac regions. EXTREMITIES: Lower extremities show deep tendon reflexes 2+ in the patellar and tendo calcaneus tendons. Motor exam is 5 on a scale of 5 with right dorsiflexion, extension, quadriceps and hamstring flexion and 5/5 on the left. Peripheral pulses are 1+ posterior tibial. No peripheral edema is noted bilaterally. Lower extremities are warm and dry to touch, equal in color and appearance. Straight leg raise noted to be positive on the right about 40 degrees, left side is negative. Gaenslen's and Edmundo's maneuvers are negative bilaterally. The patient is able to stand, stand on his toes without significant difficulty or loss of balance walks with a normal-appearing gait for a short distance in the office not use any assistive devices to ambulate such as canes or walkers. SKIN: Shows warm and dry, good turgor. No edema. No sores, rashes or bruising throughout. IMPRESSION: Impression: 40-year-old male with long history low back bilateral lower extremity pain in a radicular fashion MRI scan lumbar spine as noted Arthritis Diverticulitis Plan: Options were discussed with the patient including serve medical management physical therapies and interventional techniques. Patient would like to pursue interventional techniques. We discussed a lumbar epidural steroid injection using description as well as anatomical models described procedure. Patient will wait for preauthorization with insurance provider, with this is obtained we will proceed with L4-5 lumbar translaminar approach epidural steroid injection. In the meantime patient will continue with stretching strength exercises and yoga. Also give patient Medrol Dosepak with instructions side effects aware with the medication. Patient will follow up as scheduled. MARK NOLEN MD Oct 18, 2020 11:01
== END | disposition home or self-care (01) ==
LOC: PNCL 09:13
PROVIDERS: ATTEND Anesthesiology
DX: M54.5 Low back pain (principal); M79.605 Pain in left leg; M79.604 Pain in right leg; M19.90 Unspecified osteoarthritis, unspecified site; E03.9 Hypothyroidism, unspecified; F17.210 Nicotine dependence, cigarettes, uncomplicated; Z79.899 Other long term (current) drug therapy; Z98.890 Other specified postprocedural states
CPT/HCPCS: G0463

== ENCOUNTER → 2020-11-01 | Outpatient (CLI) | payer OTHER ==
[2019-08-17 14:38] VITALS: BP 116/69
[~2020-11-01] MED LIST changes: +IOHEXOL 180 MG/ML 10 ML VIAL. ONE; +methylPREDNISolone ACETATE 40 MG/ML VIAL. ONE; +methylPREDNISolone ACETATE 80 MG/ML VIAL. ONE
--- NOTE | 2020-11-01 09:42 | PDOC4 ---
PROCEDURE Procedure Patient was consented for lumbar epidural steroid injection. Risks were dis cussed including but not limited to: Bleeding, infection, possibility of epidural hematoma and subsequent neurological compromise, dural puncture, headaches, spinal cord and/or nerve damage, side effects of steroid medication, and poor results regarding pain control. Patient understands and wished to proceed. Procedure is lumbar epidural steroid injection under local anesthetic using sterile prep and drape at the L4-5 level using C-arm fluoroscopic guidance in both AP and lateral views medications injected is 120 mg Depo-Medrol + 10 mL preservative-free normal saline and 2 mL contrast- condition at discharge is stable patient tolerated procedure well had no complications. MARK NOLEN MD Nov 01, 2020 09:42
--- NOTE | 2020-11-01 09:42 | PDOC ---
Progress Note - Pain Clinic Date of Service: DOS: DATE: 11/01/20 TIME: 09:39 Diagnosis: Dx: Lumbar radiculopathy with lumbar degenerative disc disease History or Present Illness: HPI: 40-year-old male returns follow-up status post initial evaluation preauthorization for lumbar epidural steroid injection. Patient reports still significant pain the low back right greater than left with some numbness in the feet but the pain is radiating low back bilateral lower extremities posterior gluteus posterior lateral thigh anterior thighs medial thighs as well as posterior calves patient ports shooting and dull aching in the back tingling in the legs radiating in the legs can be constant with walking standing patient reports is better with sitting or laying down but is been waking from sleep sporadically. Patient reports no new motor or sensory deficits rates his pain is a 9 on scale 10 is worse over the past week 6 on average 5 its least and is a 7 today patient reports no new motor or sensory deficits no new bowel or bladder incontinence or other complaints. Physical Exam: VS: Blood pressure is 133/91 pulse 67 respiration 16 temperature 98.3 F weight is 214 pounds PE: PHYSICAL EXAMINATION: GENERAL: The patient is awake, alert, oriented, appropriate, very pleasant demeanor HEENT: Shows normocephalic, atraumatic. Extraocular movements are intact and sy mmetrical. Oral cavity: Mucous membranes moist and pink. NECK: Shows anterior throat supple without palpable lymphadenopathy noted. Swallow reflex symmetrical. CHEST: Shows normal on inspection. Breath sounds are clear bilaterally. HEART: Shows S1, S2 clear. No murmurs auscultated. ABDOMEN: Soft, nontender, nondistended. No palpable organomegaly is noted. BACK: Shows spine grossly in the midline. Normal-appearing cervical lordotic curvature. There is slightly increased thoracic kyphosis, some minor flattening of the lumbar lordotic curvature. Lumbar paraspinous muscles show symmetrical on inspection, on palpation shows some moderate tenderness diffusely throughout the upper, middle and lower distribution of the paraspinous muscles without specific trigger points, without radiation of pain. The patient has good rotational motion of the lumbar spine, both laterally as well as extension and flexion without significant difficulty. No tenderness over the spinous processes, sacrum or sacroiliac regions. EXTREMITIES: Lower extremities show deep tendon reflexes 2+ in the patellar and tendo calcaneus tendons. Motor exam is 5 on a scale of 5 with right dorsiflexion, extension, quadriceps and hamstring flexion and 5/5 on the left. Peripheral pulses are 1+ posterior tibial. No peripheral edema is noted bilaterally. Lower extremities are warm and dry to touch, equal in color and ap pearance. SKIN: Shows warm and dry, good turgor. No edema. No sores, rashes or bruising throughout. Procedure: Procedure: Options were discussed with the patient. Patient chart reviews his current medication regimen updated current review of systems updated today as well. We will proceed with lumbar epidural steroid traction stable fluoroscopic guidance. Risks were discussed including but not limited to: Bleeding, infection, possibility of epidural hematoma and subsequent neurological compromise, dural puncture, headaches, spinal cord and/or nerve damage, side effects of steroid medication, and poor results regarding pain control. Patient understands and wished to proceed. Patient will return to the clinic in approximate 2 weeks for follow-up, was counseled as to return appointment activity level and side effects to be aware of. Medication Injected: Med Injected: Procedure is lumbar epidural steroid injection under local anesthetic using sterile prep and drape at the L4-5 level using C-arm fluoroscopic guidance in both AP and lateral views medications injected is 120 mg Depo-Medrol + 10 mL preservative-free normal saline and 2 mL contrast- condition at discharge is stable patient tolerated procedure well had no complications. Condition at Discharge: Condition at Discharge: Condition at discharge stable, patient tolerated the procedure well and had no complications. MARK NOLEN MD Nov 01, 2020 09:42
== END | disposition home or self-care (01) ==
LOC: PNCL 08:43
PROVIDERS: ATTEND Anesthesiology
DX: M51.16 Intervertebral disc disorders with radiculopathy, lumbar region (principal); F17.210 Nicotine dependence, cigarettes, uncomplicated; Z79.899 Other long term (current) drug therapy; Z98.890 Other specified postprocedural states
CPT/HCPCS: 62323; J1030; J1040; Q9965

== ENCOUNTER → 2020-11-23 | Outpatient (CLI) | payer OTHER ==
[2019-08-17 14:38] VITALS: BP 116/69
[~2020-11-23] MED LIST changes: -IOHEXOL 180 MG/ML 10 ML VIAL. ONE; -methylPREDNISolone ACETATE 40 MG/ML VIAL. ONE; -methylPREDNISolone ACETATE 80 MG/ML VIAL. ONE
--- NOTE | 2020-11-23 10:00 | PDOC ---
Progress Note - Pain Clinic Date of Service: DOS: DATE: 11/23/20 TIME: 09:57 Diagnosis: Dx: Lumbar radiculopathy with lumbar degenerative disease Cervical radiculopathy with cervical degenerative disc disease History or Present Illness: HPI: 40-year-old male returns for follow-up status post lumbar epidurals injection x1. Patient reports about 75% improvement in his back. Bilateral lower extremi ty pain patient reports doing much better especially the right leg increasing his activity distance walking doing work activities household activities travel with greater ease sleeping better at night patient reports is not generally weak and sleepy chief complaint now is pain in the base the neck and upper extremities bilaterally right central equal to left pain radiating posterior deltoids in the triceps also in the bicep musculature forearms in the anterior aspect mostly into the hands with some numbness and tingling patient ports aching and dull tightness shooting at times in the base the neck and shoulders rated 8 on scale 10 is worse over the last week 5 on average 3 at its least is a 5 today. Patient reports no loss of motor significant fatigability of the upper extremities bilaterally. Physical Exam: VS: Blood pressure is 149/89 pulse 70 respirations 18 temperature 90.5 F weight is 212 pounds PE: PHYSICAL EXAMINATION: GENERAL: The patient is awake, alert, oriented, appropriate, very pleasant demeanor HEENT: Shows normocephalic, atraumatic. Extraocular movements are intact and symmetrical. Oral cavity: Mucous membranes moist and pink. Dentition is intact. NECK: Shows anterior throat supple without palpable lymphadenopathy noted. Swallow reflex symmetrical. CHEST: Shows normal on inspection. Breath sounds are clear bilaterally, no rales rhonchi or wheezes auscultated. HEART: Shows S1, S2 clear. No murmurs auscultated. ABDOMEN: Soft, nontender, nondistended. No palpable organomegaly is noted. No rebound or guarding demonstrated. BACK: Shows spine grossly in the midline. Normal-appearing cervical lordotic curvature. Cervical paraspinous muscles show symmetrical on inspection, on palpation shows some moderate tenderness diffusely in the inferior aspect of the paraspinous muscular belly diffusely without radiation. Patient is good rotation motion cervical spine both laterally as well as extension flexion without significant increase in pain as well or limitation of movement. There is slightly increased thoracic kyphosis, some minor flattening of the lumbar lordotic curvature. Lumbar paraspinous muscles show symmetrical on inspection, on palpation shows some moderate tenderness diffusely throughout the upper, middle and lower distribution of the paraspinous muscles, but without specific trigger points, without radiation of pain. The patient has good rotational motion of the lumbar spine, both laterally as well as extension and flexion without significant difficulty. No tenderness over the spinous processes, sacrum or sacroiliac regions. EXTREMITIES: Lower extremities show deep tendon reflexes 2+ in the patellar and tendo calcaneus tendons. Motor exam is 5 on a scale of 5 with right dorsifle xion, extension, quadriceps and hamstring flexion and 5/5 on the left. Peripheral pulses are 1+ posterior tibial. No peripheral edema is noted bilaterally. Lower extremities are warm and dry to touch, equal in color and appearance. Upper extremity show deep tendon reflexes 2+ in the bicep tricep tendons motor exam is strong with die sizer strength rated 5 out of 5 as is bicep and triceps flexion. Peripheral pulses are 2+ radial no peripheral edema is noted. Shoulder shrug is strong and intact without loss strength on resistance. SKIN: Shows warm and dry, good turgor. No edema. No sores, rashes or bruising throughout. Procedure: Procedure: Options discussed with the patient. Patient chart was reviewed his his current medication regimen updated current review of systems updated today as well. We will proceed with preauthorization for cervical epidural steroid injections patient is clinical radicular symptoms in the bilateral upper extremities with degenerative changes noted on previous MRI scan. Once patient obtains authorization we will have him return for cervical epidurals or injection C6-7 level with a translaminar approach. With fluoroscopic guidance. The meantime patient will continue with stretching strength exercise as well as oral analgesics as currently. Medication Injected: Med Injected: None Condition at Discharge: Condition at Discharge: Condition at discharge is stable. MARK NOLEN MD November 23, 2020 10:00
== END | disposition home or self-care (01) ==
LOC: PNCL 09:20
PROVIDERS: ATTEND Anesthesiology
DX: M51.16 Intervertebral disc disorders with radiculopathy, lumbar region (principal); M50.10 Cervical disc disorder with radiculopathy, unspecified cervical region; F17.210 Nicotine dependence, cigarettes, uncomplicated; Z79.899 Other long term (current) drug therapy; Z98.890 Other specified postprocedural states
CPT/HCPCS: 99212; G0463

== ENCOUNTER → 2020-12-07 | Outpatient (CLI) | payer OTHER ==
[2019-08-17 14:38] VITALS: BP 116/69
[~2020-12-07] MED LIST changes: +IOHEXOL 180 MG/ML 10 ML VIAL. ONE; +methylPREDNISolone ACETATE 40 MG/ML VIAL. ONE; +methylPREDNISolone ACETATE 80 MG/ML VIAL. ONE
--- NOTE | 2020-12-07 09:58 | PDOC ---
Progress Note - Pain Clinic Date of Service: DOS: DATE: 12/07/20 TIME: 09:55 Diagnosis: Dx: Lumbar radiculopathy with lumbar degenerative disc disease Cervical radiculopathy with cervical degenerative disc disease History or Present Illness: HPI: 40-year-old male returns follow-up status post lumbar epidural steroid injection x1 with about 75% improvement waiting for preauthorization for cervical epidural he is obtained that now reports still pain base the neck and left upper extremity as it was previously no new motor or sensory deficits patient reports a 7 on scale 10 is worse over the past week for an average for his least is a 4 today patient reported aching and shooting tingling in the left arm as well as sore with some numbness and electrical sensation in the left arm at times as well as the base of the neck patient reports occasionally in the right arm but mostly on the left patient reports no new motor or sensory deficits no new bowel or bladder incontinence or other complaints is awakening from sleep about once a night but not most nights. Patient reports no new motor or sensory deficits no bowel or bladder incontinence no other complaints at this time. Physical Exam: VS: Blood pressure is 131/88 pulse 67 respirations are 16 temperature 98.4 F weight is 212 pounds PE: PHYSICAL EXAMINATION: GENERAL: The patient is awake, alert, oriented, appropriate, very pleasant demeanor HEENT: Shows normocephalic, atraumatic. Extraocular movements are intact and symmetrical. Oral cavity: Mucous membranes moist and pink. Dentition is intact. NECK: Shows anterior throat supple without palpable lymphadenopathy noted. Swallow reflex symmetrical. CHEST: Shows normal on inspection. Breath sounds are clear bilaterally, no rales rhonchi or wheezes auscultated. HEART: Shows S1, S2 clear. No murmurs auscultated. ABDOMEN: Soft, nontender, nondistended, obese. No palpable organomegaly is noted. No rebound or guarding demonstrated. BACK: Shows spine grossly in the midline. Normal-appearing cervical lordotic curvature. There is slightly increased thoracic kyphosis, some minor flattening of the lumbar lordotic curvature. Lumbar paraspinous muscles show symmetrical on inspection, on palpation shows some moderate tenderness diffusely throughout the upper, middle and lower distribution of the paraspinous muscles, but without specific trigger points, without radiation of pain. The patient has good rotational motion of the lumbar spine, both laterally as well as extension and flexion without significant difficulty. EXTREMITIES: Lower extremities show deep tendon reflexes 2+ in the patellar and tendo calcaneus tendons. Motor exam is 5 on a scale of 5 with right dorsiflexion, extension, quadriceps and hamstring flexion and 5/5 on the left. Peripheral pulses are 1+ posterior tibial. No peripheral edema is noted bilaterally. Lower extremities are warm and dry to touch, equal in color and appearance. Upper extremity show deep tendon reflexes 2+ in the bicep and triceps tendons, motor exam strong with apprentice painter hand strength rated at 5 out of 5 as is biceps and triceps flexion and extension bilaterally. Peripheral pulses are 2+ radial no peripheral edema is noted. SKIN: Shows warm and dry, good turgor. No edema. No sores, rashes or bruising throughout. Procedure: Procedure: Options were discussed with patient. Patient chart was reviewed his current medication regimen updated current review of systems updated today as well. We will proceed with cervical epidural steroid injection today with fluoroscopic guidance. Risks were discussed including but not limited to: Bleeding, infection, possibility of epidural hematoma and subsequent neurological compromise, dural puncture, headaches, spinal cord and/or nerve damage, side effects of steroid medication, and poor results regarding pain control. Patient understands and wished to proceed. Patient return to clinic in approximate 2 weeks for follow-up, was counseled as to return appointment activity level and side effects to be aware of. Medication Injected: Med Injected: Procedure cervical epidural steroid injection at the C6-7 level, using local anesthetic under sterile prep and drape using C-arm fluoroscopic guidance under local anesthesia medications injected ;120 mg Depo-Medrol +5 mL normal saline and 2 mL contrast; condition at discharge is stable patient tolerated procedure well. and had no complications Condition at Discharge: Condition at Discharge: Initial discharge stable, patient already procedure well and had no complications. MARK NOLEN MD December 07, 2020 09:58
--- NOTE | 2020-12-07 09:58 | PDOC4 ---
PROCEDURE Procedure Patient was consented for cervical epidural steroid injection. Risks were d iscussed including but not limited to: Bleeding, infection, possibility of epidural hematoma and subsequent neurological compromise, dural puncture, headaches, spinal cord and/or nerve damage, side effects of steroid medication, and poor results regarding pain control. Patient understands and wished to proceed. Procedure cervical epidural steroid injection at the C6-7 level, using local anesthetic under sterile prep and drape using C-arm fluoroscopic guidance under local anesthesia medications injected ;120 mg Depo-Medrol +5 mL normal saline and 2 mL contrast; condition at discharge is stable patient tolerated procedure well. and had no complications MARK NOLEN MD December 07, 2020 09:58
== END | disposition home or self-care (01) ==
LOC: PNCL 09:04
PROVIDERS: ATTEND Anesthesiology
DX: M50.10 Cervical disc disorder with radiculopathy, unspecified cervical region (principal); M51.16 Intervertebral disc disorders with radiculopathy, lumbar region; F17.210 Nicotine dependence, cigarettes, uncomplicated; Z79.899 Other long term (current) drug therapy; Z98.890 Other specified postprocedural states
CPT/HCPCS: 62321; J1030; J1040; Q9965

== ENCOUNTER → 2021-07-28 | Outpatient (CLI) | payer OTHER ==
[2019-08-17 14:38] VITALS: BP 116/69
[~2021-07-28] MED LIST changes: -IOHEXOL 180 MG/ML 10 ML VIAL. ONE; -methylPREDNISolone ACETATE 40 MG/ML VIAL. ONE; -methylPREDNISolone ACETATE 80 MG/ML VIAL. ONE
--- NOTE | 2021-07-28 09:50 | KCIC ---
EXAM: Cervical spine MRI without contrast. HISTORY: Spondylosis. Neck pain and bilateral upper extremity numbness. TECHNIQUE: Multiplanar, multisequence magnetic resonance imaging of the cervical spine was performed without contrast. COMPARISON: None. FINDINGS: There is no significant listhesis. There is degenerative endplate remodeling with disc spac e narrowing and osteophytosis at C5-C6. There are are lesser degrees of endplate remodeling at C3-C4 and C4-C5. There is no suspicious osseous lesion. No spinal cord lesion is seen. There is no acute or subacute fracture. The posterior fossa is unremarkable. At C2-C3, there is no stenosis. At C3-C4, there is a right lateral recess to foraminal disc protrusion and osteophyte complex superim posed on a disc bulge and endplate remodeling. There is minimal right greater than left foraminal valentina nosis. At C4-C5, there is a disc bulge and endplate remodeling. There is uncovertebral arthropathy. There is minimal right and mild left foraminal stenosis. At C5-C6, there is a shallow broad-based posterior disc protrusion superimposed on a disc bulge and e ndplate osteophytosis. There is uncovertebral arthropathy. There is moderate bilateral foraminal sten osis. There is mild central canal stenosis measuring 8.7 mm in anterior posterior dimension. At C6-C7, there is no stenosis. IMPRESSION: Degenerative change involving the cervical spine, described in detail above. This is most significant at C5-C6, resulting in moderate bilateral foraminal and mild central canal stenosis. Electronically signed by: Oriana Bradford MD (07/28/2021 9:47 AM) [id number]
== END ==
LOC: KCIC MRI 08:19
PROVIDERS: ATTEND Family Medicine
DX: M47.812 Spondylosis without myelopathy or radiculopathy, cervical region (principal); M48.02 Spinal stenosis, cervical region; M25.78 Osteophyte, vertebrae
CPT/HCPCS: 72141